=== PATIENT | female | born 1965 | race Two or more races ===

== ENCOUNTER 2019-02-25 09:00 | Inpatient (IN) | payer OTHER ==
[~2019-02-25] VITALS: Ht 149.9 cm; Wt 71.2 kg
[~2019-02-25 09:00] MED LIST: AMBIEN5 MG; PAXIL20 MG; SYNTHROID100 MCG; XANAX XR0.5 MG
[2019-04-03] MEDS ORDERED: SINGULAIR10 MG PO (09:16)
[2019-04-03] MEDS ORDERED: RESTORI PO (09:16)
[2019-04-03] MEDS ORDERED: LIPITOR40 MG PO (09:17)
[2019-04-10] MEDS ORDERED: ELIQUIS2.5 MG PO (14:07)
[2019-04-10] MEDS ORDERED: PERCOCET 5-3251 EACH PO (14:07)
== END 2019-04-10 18:39 | DRG 470 ==
LOC: SURH 04-08 05:50 → O/R 04-08 05:50 → SURH 04-08 07:00
PROVIDERS: ADMIT Orthopaedic Surgery
PROC: 3E0F7GC Introduction of Other Therapeutic Substance into Respiratory Tract, Via Natural or Artificial Opening (ICD-10-PCS; 2019-04-08)
PROC: 0SRB02Z Replacement of Left Hip Joint with Metal on Polyethylene Synthetic Substitute, Open Approach (ICD-10-PCS; principal; 2019-04-08 07:00)
DX: M16.12 Unilateral primary osteoarthritis, left hip (principal); D62 Acute posthemorrhagic anemia; J45.909 Unspecified asthma, uncomplicated; M06.862 Other specified rheumatoid arthritis, left knee; Z96.642 Presence of left artificial hip joint

== ENCOUNTER 2023-01-25 07:37 | Outpatient (CLI) | payer OTHER ==
[~2023-01-25 07:37] MED LIST changes: +ELIQUIS2.5 MG PO; +LIPITOR40 MG PO; +PERCOCET 5-3251 EACH PO; +RESTORI PO; +SINGULAIR10 MG PO
== END 2023-01-25 07:38 | disposition home or self-care (01) ==
LOC: NUCLEAR 07:37
PROVIDERS: ATTEND Internal Medicine Cardiovascular Disease
DX: I10 Essential (primary) hypertension (principal); J44.9 Chronic obstructive pulmonary disease, unspecified

== ENCOUNTER 2023-03-17 06:03 | Emergency (ER) | payer OTHER ==
[~2023-03-17] VITALS: Ht 149.9 cm; Wt 68.0 kg
[2023-03-17] MEDS ORDERED: SYNTHROID125 MCG (06:33)
[2023-03-17] MEDS ORDERED: TRAZODONE HCL150 MG (06:33)
[2023-03-17] MEDS ORDERED: XOPENEX HFA15 GM (06:34)
[2023-03-17] MEDS ORDERED: LANTUS SOL100 UNIT/1 (06:35)
[2023-03-17] MEDS ORDERED: ALBUTEROL2.5 MG/3 M (06:36)
== END 2023-03-17 07:31 | disposition home or self-care (01) ==
LOC: ER 06:03
DX: J06.9 Acute upper respiratory infection, unspecified (principal); Z88.0 Allergy status to penicillin; Z88.8 Allergy status to other drugs, medicaments and biological substances

== ENCOUNTER 2023-04-18 07:04 | Outpatient (CLI) | payer OTHER ==
[~2023-04-18 07:04] MED LIST changes: +ALBUTEROL2.5 MG/3 M; +LANTUS SOL100 UNIT/1; +SYNTHROID125 MCG; +TRAZODONE HCL150 MG; +XOPENEX HFA15 GM
== END 2023-04-18 07:10 | disposition home or self-care (01) ==
LOC: MAMO-SONO 07:04
PROVIDERS: ATTEND Internal Medicine Cardiovascular Disease
DX: N63.11 Unspecified lump in the right breast, upper outer quadrant (principal); Z12.31 Encounter for screening mammogram for malignant neoplasm of breast

== ENCOUNTER 2023-12-20 07:47 | Outpatient (CLI) | payer OTHER | END 2023-12-20 07:53 | disposition home or self-care (01) | LOC: MRI 07:47 | PROVIDERS: ATTEND Internal Medicine Cardiovascular Disease | DX: M46.47 Discitis, unspecified, lumbosacral region (principal) | CPT/HCPCS: 72148 ==